=== PATIENT | male | born 1975 | race Caucasian/White ===

== ENCOUNTER → 2017-02-13 | Outpatient (CLI) | payer OTHER ==
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
== END | disposition home or self-care (01) ==
LOC: ADTC.GI 12:37
DX: F10.20 Alcohol dependence, uncomplicated (principal)